=== PATIENT | male | born 1995 | race Caucasian/White ===

== ENCOUNTER 2018-10-07 10:53 | Emergency (ER) | payer SELFPAY ==
[~2018-10-07] VITALS: Ht 175.3 cm; Wt 72.0 kg
[2018-10-07 11:00] VITALS: BP 130/72; Ht 175.3 cm; Wt 72.0 kg
--- NOTE | 2018-10-07 12:10 | ERD ---
ER Documentation Chief Complaint Chief Complaint LT FOOT PAIN SWELLING X 4 DAYS HPI 23-year-old male presenting with left foot pain and swelling for the past 4 to 5 days. He states that he stepped on a "thorn" at work that went through his shoe. He states that he took out what he feels was the whole thorn. However he has had worsening pain since in his foot. Now he is having difficulty walking secondary to the pain. The pain is throbbing, 7 out of 10, nonradiating. He now has associated left foot redness and warmth that extends to the top of his left foot. No associated fevers or chills. No weakness or numbness. ROS All systems reviewed and are negative except as per history of present illness. Medications Home Meds Active Scripts Clindamycin Hcl* (Clindamycin Hcl*) 300 Mg Capsule, 300 MG PO TID for 7 Days, CAP Prov:BOWEN SANCHEZ MD 10/07/18 Ibuprofen* (Motrin*) 600 Mg Tab, 600 MG PO Q6H PRN for PAIN AND OR ELEVATED TEMP, #30 TAB Prov:BOWEN SANCHEZ MD 10/07/18 Allergies Allergies: Coded Allergies: Penicillins (Verified Allergy, Unknown, UNKNOWN, 11/22/13) PMhx/Soc History of Surgery: No Anesthesia Reaction: No Hx Neurological Disorder: No Hx Respiratory Disorders: No Hx Cardiac Disorders: No Hx Psychiatric Problems: No Hx Miscellaneous Medical Probl: No Hx Alcohol Use: No Hx Substance Use: Yes Hx Tobacco Use: No Smoking Status: Current every day smoker FmHx Family History: No diabetes Physical Exam Vitals Vital Signs Date Temp Pulse Resp B/P (MAP) Pulse Ox O2 O2 Flow FiO2 Time Delivery Rate 10/07/18 98.6 78 18 100 Room Air 12:22 10/07/18 98.6 90 18 130/72 99 11:00 (91) Physical Exam Const: No acute distress Head: Atraumatic Skin: Multiple shallow ulcers on the face. no petechiae or rashes. Left foot erythema as noted below Ext: Left foot with mild swelling mostly over the lateral aspect with erythema that extends from the lateral foot to the midfoot. Old puncture wound noted to the left lateral plantar aspect of the foot with no obvious foreign body seen or palpable. No surrounding erythema, evidence of abscess or drainage from the area. 2+ DP and PT pulses. Neur: Awake and alert Psych: Normal Mood and Affect Results 24 hrs Current Medications Medications Dose Sig/Collin Start Time Status Last (Trade) Ordered Route PRN Stop Time Admin Dose Reason Admin Diphtheria/ 0.5 ml ONCE ONCE 10/07/18 DC 10/07/18 Tetanus/Acell IM* 12:30 12:17 Pertussis 10/07/18 12:30 (Adacel) Ibuprofen 800 mg ONCE ONCE 10/07/18 DC 10/07/18 (Motrin) PO 12:30 12:16 10/07/18 12:30 Procedures/MDM Patient is presenting with evidence of left foot cellulitis likely secondary to recent puncture wound. Tetanus vaccine was updated as the patient states he has not had one in the last 10 years. He is afebrile here with stable vitals. No evidence of necrotizing infection. Treated with ibuprofen for pain. I do not think x-rays are indicated as the described foreign body would not show up on the x-rays anyway. He denies any possibility of other foreign bodies. I recommended treatment with antibiotics and foot soaks at home. Return precautions discussed. Patient's blood pressure was elevated (>120/80) but appears stable without evidence of hypertension emergency or urgency. The patient was counseled about the risks of hypertension and urged to pursue outpatient monitoring and therapy within a week with their primary care physician. Departure Diagnosis: Primary Impression: Cellulitis of left foot Additional Impression: Puncture wound of left foot Encounter type: initial encounter Qualified Codes: S91.332A - Puncture wo und without foreign body, left foot, initial encounter Condition: Stable EKBOWEN GUILLORY MD Oct 07, 2018 12:10
[2018-10-07] MEDS ORDERED: CLIN300C10 PO (12:14)
[2018-10-07] MEDS ORDERED: IBUP-1542 PO (12:14)
[2018-10-07 12:22] VITALS: PULSE 78; RESP 18
[2018-10-07] MEDS ORDERED: IBUPROFEN 800 MG TAB PO ONE (12:30)
[2018-10-07] MEDS ORDERED: DIPHTH/TET/ACEL PERTUSS (ADULT) 0.5 ML VIAL IM* ONE (12:30)
== END 2018-10-07 12:23 | disposition home or self-care (01) ==
LOC: FTE 10:53
DX: S91.332A Puncture wound without foreign body, left foot, initial encounter (principal); F17.210 Nicotine dependence, cigarettes, uncomplicated; W45.8XXA Other foreign body or object entering through skin, initial encounter; Y92.89 Other specified places as the place of occurrence of the external cause; Z23 Encounter for immunization
CPT/HCPCS: 90471; 90715; Z7502; Z7610